=== PATIENT | male | born 1945 | race Caucasian/White ===

== ENCOUNTER 2020-06-05 18:13 | Inpatient (IN) ==
[2020-06-05 22:06] LABS: Adenovirus Not Detected (Not Detect); Bordetella Pertussis Not Detected (Not Detect); Chlamydophila pneumoniae Not Detected (Not Detect); Coronavirus 229E Not Detected (Not Detect); Coronavirus HKU1 Not Detected (Not Detect); Coronavirus NL63 Not Detected (Not Detect); Coronavirus OC43 Not Detected (Not Detect); Human Metapneumovirus Not Detected (Not Detect); Human Rhinovirus/Enterovirus Not Detected (Not Detect); Influenza A Subtype 2009 H1 Not Detected (Not Detect); Influenza B Not Detected (Not Detect); Mycoplasma pneumoniae Not Detected (Not Detect); Parainfluenza Virus 1 Not Detected (Not Detect); Parainfluenza Virus 2 Not Detected (Not Detect); Parainfluenza Virus 3 Not Detected (Not Detect); Parainfluenza Virus 4 Not Detected (Not Detect); Respiratory Syncytial Virus Not Detected (Not Detect)
[2020-06-05 22:07] LABS: SARS-CoV-2 Not Detected (Not Detect)
[2020-06-05] MEDS ORDERED: Ondansetron 4 MG/2 ML VIAL IVP PRN (23:36)
[2020-06-05] MEDS ORDERED: Naloxone 0.4 MG/ML INJ IVP PRN (23:36)
[2020-06-06] MEDS ORDERED: *HR* Dextrose 50 % in Water (Vial) 50 ML VIAL IVP PRN (03:19)
[2020-06-06] MEDS ORDERED: D5% in Water 1,000 ML IVC PRN (03:19)
[2020-06-06] MEDS ORDERED: Dextrose Gel 15 GM/37.5 ML TUBE PO PRN ×2 (03:19)
[2020-06-06] MEDS: *HR* Heparin 5,000 UNIT/ML VIAL SQ SCH ×2 (05:24→18:36)
[2020-06-06 06:08] LABS: Basophils # 0.1 K/mcL (0.0-0.2); Basophils % 0.7 %; Eosinophils # 0.1 K/mcL (0.0-0.6); Eosinophils % 1.2 %; Hematocrit 35.7 % (37.5-50.1); Hemoglobin 10.2 g/dL (12.9-16.9); Immature Granulocytes % 1.9 % (0-4); Lymphocytes # 1.4 K/mcL (0.6-4.6); Lymphocytes % 13.2 %; Mean Corpuscular HGB Conc 28.6 g/dL (31.6-35.5); Mean Corpuscular Hemoglobin 29.7 pg (28.0-33.3); Mean Corpuscular Volume 104.1 fL (83.0-100.0); Mean Platelet Volume 9.4 fL (9.4-12.4); Monocytes # 1.3 K/mcL (0.0-1.3); Monocytes % 12.5 %; Neutrophils # 7.5 K/mcL (1.6-8.9); Platelet Count 262 K/mcL (140-400); Red Blood Count 3.43 M/mcL (4.19-5.50); Red Cell Distribution Width 18.6 % (11.5-14.5); Segmented Neutrophils % 70.5 %; White Blood Count 10.6 K/mcL (4.3-11.1)
[2020-06-06 06:24] LABS: Albumin 3.5 g/dL (3.5-5.7); Albumin/Globulin Ratio 0.8 (1.1-2.2); Bilirubin,Total 0.4 mg/dL (0.3-1.0); Calcium 10.2 mg/dL (8.6-10.3); Globulin 4.5 g/dL (2.4-3.5); Magnesium 2.7 mg/dL (1.6-2.6); Phosphorous 4.6 mg/dL (2.7-4.5); Potassium 4.2 mEq/L (3.5-5.1)
[2020-06-06 06:26] LABS: Platelet Estimate Normal (Normal)
[2020-06-06 06:27] LABS: Anisocytosis 1+ (Not Present); Hypochromasia Present (Not Present); Stomatocytes 1+ (Not Present)
[2020-06-06] MEDS ORDERED: *HR* FentaNYL (PF) 100 MCG/2 ML VIAL ONE (07:38)
[2020-06-06] MEDS ORDERED: *HR* Midazolam HCl 5 MG/5 ML VIAL IVP ONE (07:39)
[2020-06-06] MEDS ORDERED: Lidocaine Viscous Oral Soln 15 ML SOLUTION ONE (07:39)
[2020-06-06] MEDS: Insulin LISPRO 300 UNITS/3 ML VIAL SQ SCH ×4 (08:00→21:47)
[2020-06-06] MEDS: cefTRIAXone 1,000 MG in Water for inj. (sterile) 10 ML IVP SCH (08:00)
[2020-06-06 08:30] LABS: Procalcitonin 1.54 ng/mL (0.00-0.15)
[2020-06-06] MEDS ORDERED: Ipratropium/Albuterol Neb 3 ML IH PRN (09:04)
[2020-06-06] MEDS: Budesonide Neb 0.5 MG/2 ML IH SCH ×2 (09:47→21:38)
[2020-06-06] MEDS: Ipratropium/Albuterol Neb 3 ML IH SCH ×3 (09:47→21:38)
[2020-06-06 15:20] LABS: Hepatitis B Surface Antibody 11.25 mIU/mL
[2020-06-06 15:32] LABS: Hepatitis B Surface Antigen Reactive (Nonreactive)
[2020-06-06] MEDS: Azithromycin 500 MG in D5% in Water 250 ML IVPB SCH (18:36)
[2020-06-06] MEDS ORDERED: Acetaminophen 325 MG TABLET PO PRN (19:13)
[2020-06-06] MEDS: Albuterol 2.5 MG/3 ML NEBULIZER AER SCH (21:38)
[2020-06-07] MEDS: Ipratropium/Albuterol Neb 3 ML IH SCH ×4 (03:48→21:14)
[2020-06-07] MEDS: *HR* Heparin 5,000 UNIT/ML VIAL SQ SCH (05:03)
[2020-06-07 06:15] LABS: Hematocrit 33.7 % (37.5-50.1); Hemoglobin 9.9 g/dL (12.9-16.9); Mean Corpuscular HGB Conc 29.4 g/dL (31.6-35.5); Mean Corpuscular Hemoglobin 30.1 pg (28.0-33.3); Mean Corpuscular Volume 102.4 fL (83.0-100.0); Mean Platelet Volume 9.9 fL (9.4-12.4); Platelet Count 290 K/mcL (140-400); Red Blood Count 3.29 M/mcL (4.19-5.50); Red Cell Distribution Width 18.2 % (11.5-14.5); White Blood Count 11.4 K/mcL (4.3-11.1)
[2020-06-07 06:47] LABS: Calcium 10.5 mg/dL (8.6-10.3); Magnesium 2.9 mg/dL (1.6-2.6); Potassium 4.4 mEq/L (3.5-5.1)
[2020-06-07] MEDS ORDERED: 0.9 % Sodium Chloride 1,000 ML PRIME SCH (08:15)
[2020-06-07] MEDS ORDERED: *HR* Heparin 10,000 UNIT/10 ML VIAL IV PRN ×2 (08:15)
[2020-06-07] MEDS: Renal Vitamin 1 CAP CAPSULE PO SCH (08:22)
[2020-06-07] MEDS: cefTRIAXone 1,000 MG in Water for inj. (sterile) 10 ML IVP SCH (08:24)
[2020-06-07] MEDS: Insulin LISPRO 300 UNITS/3 ML VIAL SQ SCH ×4 (08:25→21:50)
[2020-06-07] MEDS ORDERED: Famotidine 400 MG/50 ML ORAL SUSPENSION GTUBE SCH (09:00)
[2020-06-07] MEDS: Famotidine 400 MG/50 ML ORAL SUSPENSION GTUBE SCH (09:26)
[2020-06-07] MEDS: Albuterol 2.5 MG/3 ML NEBULIZER AER SCH ×2 (10:00→21:14)
[2020-06-07] MEDS: Budesonide Neb 0.5 MG/2 ML IH SCH ×2 (10:00→21:14)
[2020-06-07] MEDS: Azithromycin 500 MG in D5% in Water 250 ML IVPB SCH (17:12)
[2020-06-07] MEDS: 0.9 % Sodium Chloride 250 ML IVC PRN (21:47)
[2020-06-08] MEDS: 0.9 % Sodium Chloride 250 ML IVC PRN (03:27)
[2020-06-08 03:50] LABS: Hemoglobin 9.8 g/dL (12.9-16.9)
[2020-06-08 03:51] LABS: Hematocrit 35.3 % (37.5-50.1); Mean Corpuscular HGB Conc 27.8 g/dL (31.6-35.5); Mean Corpuscular Hemoglobin 30.4 pg (28.0-33.3); Mean Corpuscular Volume 109.6 fL (83.0-100.0); Mean Platelet Volume 9.6 fL (9.4-12.4); Platelet Count 365 K/mcL (140-400); Red Blood Count 3.22 M/mcL (4.19-5.50); White Blood Count 17.8 K/mcL (4.3-11.1)
[2020-06-08] MEDS: Ipratropium/Albuterol Neb 3 ML IH SCH ×4 (04:02→21:14)
[2020-06-08 04:03] LABS: ABG PCO2 > 150 mmHg (35-45); ABG PH 6.75 pH Units (7.32-7.45); ABG PO2 77 mmHg (85-104)
[2020-06-08 04:08] LABS: Calcium 9.6 mg/dL (8.6-10.3); Potassium 5.4 mEq/L (3.5-5.1)
[2020-06-08 04:09] LABS: % Iron Saturation 46 % (20-55); Iron 74 mcg/dL (65-175); Transferrin 114 mg/dL (203-362)
[2020-06-08 04:11] LABS: Phosphorous 8.5 mg/dL (2.7-4.5)
[2020-06-08 04:34] LABS: Folate 18.7 ng/mL (3.0-16.0)
[2020-06-08] MEDS ORDERED: 0.9 % Sodium Chloride 1,000 ML IVC ONE (04:55)
[2020-06-08] MEDS ORDERED: 0.9 % Sodium Chloride 1,000 ML ONE (04:56)
[2020-06-08] MEDS ORDERED: Norepinephrine 4 MG/254 ML IV.SOLN IVC SCH (06:15)
[2020-06-08] MEDS: Insulin LISPRO 300 UNITS/3 ML VIAL SQ SCH ×4 (08:54→23:39)
[2020-06-08] MEDS: Renal Vitamin 1 CAP CAPSULE PO SCH (08:55)
[2020-06-08] MEDS: cefTRIAXone 1,000 MG in Water for inj. (sterile) 10 ML IVP SCH (08:58)
[2020-06-08 09:24] LABS: VBG HCO3 22 mEq/L (21-27); VBG PCO2 56 mmHg (41-51); VBG PH 7.19 pH Units (7.32-7.42); VBG PO2 198 mmHg (25-50)
[2020-06-08] MEDS ORDERED: Phenylephrine 10 MG in 0.9 % Sodium Chloride 250 ML IVC SCH (09:30)
[2020-06-08] MEDS: Budesonide Neb 0.5 MG/2 ML IH SCH ×2 (10:22→21:15)
[2020-06-08] MEDS: Albuterol 2.5 MG/3 ML NEBULIZER AER SCH ×2 (10:22→21:15)
[2020-06-08] MEDS: Famotidine 400 MG/50 ML ORAL SUSPENSION GTUBE SCH (12:13)
[2020-06-08] MEDS: Phenylephrine 50 MG in 0.9 % Sodium Chloride 250 ML IVC SCH ×2 (12:13→17:15)
[2020-06-08] MEDS: *HR* FentaNYL (PF) 100 MCG/2 ML VIAL IVP PRN ×2 (12:29→18:06)
[2020-06-08] MEDS ORDERED: Artificial Tears SOLN 15 ML BOTTLE BOTH EYES PRN (12:57)
[2020-06-08 14:55] LABS: Calcium 9.7 mg/dL (8.6-10.3); Potassium 4.4 mEq/L (3.5-5.1)
[2020-06-08] MEDS ORDERED: Perflutren Lipid Microsphere 1.3 ML in 0.9 % Sodium Chloride 8.7 ML IVP PRN (15:19)
[2020-06-08] MEDS ORDERED: Vasopressin 40 UNIT in D5% in Water 100 ML IVC SCH (15:30)
[2020-06-08] MEDS: Chlorhexidine Rinse 15 ML MOUTHWASH MM SCH ×2 (15:55→19:46)
[2020-06-08] MEDS: Artificial Tears SOLN 15 ML BOTTLE BOTH EYES SCH ×3 (15:57→23:39)
[2020-06-08] MEDS ORDERED: Vancomycin 1,500 MG/265 ML IV.SOLN IVPB ONE (16:00)
[2020-06-08 16:19] LABS: ABG Base Excess -9 mEq/L (-2 to 3); ABG HCO3 20 mEq/L (21-27); ABG Oxygen Saturation 94 % (95-98); ABG PCO2 53 mmHg (35-45); ABG PH 7.18 pH Units (7.32-7.45); ABG PO2 89 mmHg (85-104); ABG TCO2 22 mEq/L (20-26); Blood Gas VT 550 cc
[2020-06-08] MEDS: Norepinephrine 8 MG in 0.9 % Sodium Chloride 250 ML IVC SCH (17:17)
[2020-06-08] MEDS: Vasopressin 40 UNIT in D5% in Water 100 ML IVC SCH (17:17)
[2020-06-08] MEDS ORDERED: D5% in Water 250 ML ONE (17:45)
[2020-06-08] MEDS: Azithromycin 500 MG in D5% in Water 250 ML IVPB SCH (17:47)
[2020-06-08] MEDS: Piperacillin/Tazobactam 3.375 GM in 0.9 % Sodium Chloride Mini Bag 100 ML IVPB SCH (17:48)
[2020-06-08] MEDS: FentaNYL (PF) 1,000 MCG/100 ML IV.SOLN IVC SCH (18:49)
[2020-06-08 19:05] LABS: Adenovirus F 40/41 PCR Not detected (Not detect); Astrovirus PCR Not detected (Not detect); C.difficile Toxin A/B Gene PCR Not detected (Not detect); Campylobacter by PCR Not detected (Not detect); Cryptosporidium by PCR Not detected (Not detect); Cyclospora cayetanensis PCR Not detected (Not detect); E. coli O157 by PCR Not detected (Not detect); Entamoeba histolytica PCR Not detected (Not detect); Enteroaggregative E.coli(EAEC) Not detected (Not detect); Enteropathogenic E.coli(EPEC) Not detected (Not detect); Enterotoxigenic E.coli (ETEC) Not detected (Not detect); Giardia lamblia PCR Not detected (Not detect); Norovirus GI/GII PCR Not detected (Not detect); Plesiomonas shigelloides PCR Not detected (Not detect); Rotavirus A PCR Not detected (Not detect); Salmonella PCR Not detected (Not detect); Sapovirus PCR Not detected (Not detect); Shig/EnteroinvasiveE coli EIEC Not detected (Not detect); Shigalike tox-prod E coli STEC Not detected (Not detect); Vibrio PCR Not detected (Not detect); Vibrio cholerae PCR Not detected (Not detect); Yersinia enterocolitica PCR Not detected (Not detect)
[2020-06-09] MEDS: Phenylephrine 50 MG in 0.9 % Sodium Chloride 250 ML IVC SCH ×2 (00:11→05:34)
[2020-06-09] MEDS: Ipratropium/Albuterol Neb 3 ML IH SCH ×4 (03:16→21:19)
[2020-06-09] MEDS: Artificial Tears SOLN 15 ML BOTTLE BOTH EYES SCH ×5 (03:59→20:22)
[2020-06-09 04:33] LABS: ABG Base Excess -8 mEq/L (-2 to 3); ABG HCO3 18 mEq/L (21-27); ABG Oxygen Saturation 99 % (95-98); ABG PCO2 38 mmHg (35-45); ABG PH 7.28 pH Units (7.32-7.45); ABG PO2 127 mmHg (85-104); ABG TCO2 19 mEq/L (20-26); Blood Gas VT 550 cc
[2020-06-09 04:46] LABS: Albumin/Globulin Ratio 0.7 (1.1-2.2); Bilirubin,Total 0.5 mg/dL (0.3-1.0); Calcium 9.1 mg/dL (8.6-10.3); Globulin 4.3 g/dL (2.4-3.5); Magnesium 2.3 mg/dL (1.6-2.6); Phosphorous 2.9 mg/dL (2.7-4.5); Total Protein 7.3 g/dL (6.4-8.9)
[2020-06-09 04:59] LABS: Basophils # 0.1 K/mcL (0.0-0.2); Basophils % 0.2 %; Eosinophils % 0.1 %; Hematocrit 33.4 % (37.5-50.1); Hemoglobin 10.5 g/dL (12.9-16.9); Immature Granulocytes % 1.5 % (0-4); Lymphocytes % 4.3 %; Mean Corpuscular HGB Conc 31.4 g/dL (31.6-35.5); Mean Corpuscular Hemoglobin 30.8 pg (28.0-33.3); Mean Corpuscular Volume 97.9 fL (83.0-100.0); Mean Platelet Volume 10.1 fL (9.4-12.4); Monocytes # 2.3 K/mcL (0.0-1.3); Monocytes % 9.8 %; Nucleated Red Blood Cells 0.6 /100 WBC (0); Platelet Count 325 K/mcL (140-400); Red Blood Count 3.41 M/mcL (4.19-5.50); Segmented Neutrophils % 84.1 %; White Blood Count 23.6 K/mcL (4.3-11.1)
[2020-06-09 05:10] LABS: Neutrophils # 19.9 K/mcL (1.6-8.9)
[2020-06-09] MEDS: Piperacillin/Tazobactam 3.375 GM in 0.9 % Sodium Chloride Mini Bag 100 ML IVPB SCH ×2 (05:23→17:28)
[2020-06-09] MEDS: Insulin LISPRO 300 UNITS/3 ML VIAL SQ SCH ×3 (05:34→19:05)
[2020-06-09 06:09] LABS: Anisocytosis 1+ (Not Present); Hypochromasia Present (Not Present); Platelet Estimate Normal (Normal); Poikilocytosis 1+ (Not Present); Toxic Vacuolation Present (Not Present)
[2020-06-09] MEDS: FentaNYL (PF) 1,000 MCG/100 ML IV.SOLN IVC SCH ×2 (08:45→16:57)
[2020-06-09] MEDS: Albuterol 2.5 MG/3 ML NEBULIZER AER SCH ×2 (09:38→21:20)
[2020-06-09] MEDS: Budesonide Neb 0.5 MG/2 ML IH SCH ×2 (09:38→21:19)
[2020-06-09] MEDS: Chlorhexidine Rinse 15 ML MOUTHWASH MM SCH ×2 (10:44→20:21)
[2020-06-09] MEDS: Renal Vitamin 1 CAP CAPSULE PO SCH (10:45)
[2020-06-09] MEDS: Phenylephrine 100 MG in 0.9 % Sodium Chloride 500 ML IVC SCH ×2 (10:46→20:39)
[2020-06-09] MEDS: Vasopressin 40 UNIT in D5% in Water 100 ML IVC SCH (10:49)
[2020-06-09] MEDS ORDERED: Calcium Gluconate 1gm/50mL 1 GM/50 ML BAG IVPB PRN (11:43)
[2020-06-09] MEDS ORDERED: 0.9 % Sodium Chloride 1,000 ML PRIME ONE ×2 (11:43)
[2020-06-09] MEDS ORDERED: *HR* Heparin 5,000 UNIT/ML VIAL IVP PRN (11:43)
[2020-06-09] MEDS ORDERED: 0.9 % Sodium Chloride 1,000 ML PRIME SCH (11:45)
[2020-06-09] MEDS: Famotidine 400 MG/50 ML ORAL SUSPENSION GTUBE SCH (16:33)
[2020-06-09 17:09] LABS: INR 1.5; Prothrombin Time 17.5 Seconds (9.4-12.1)
[2020-06-09 17:12] LABS: Activated Partial Thrombo Time 34.4 Seconds (26.0-36.0)
[2020-06-09 17:14] LABS: VBG Ionized Calcium 1.11 mmol/L (1.15-1.35)
[2020-06-09] MEDS: Azithromycin 500 MG in D5% in Water 250 ML IVPB SCH (17:28)
[2020-06-09] MEDS: PrismaSATE BGK 4/2.5 5,000 ML CRRT SCH ×4 (17:29→21:49)
[2020-06-09] MEDS: Calcium Chloride 4,000 MG in 0.9 % Sodium Chloride 1,000 ML CRRT SCH (17:30)
[2020-06-09] MEDS: Norepinephrine 8 MG in 0.9 % Sodium Chloride 250 ML IVC SCH (17:31)
[2020-06-09 20:07] LABS: VBG Ionized Calcium 1.07 mmol/L (1.15-1.35)
[2020-06-10 00:24] LABS: VBG Ionized Calcium 1.14 mmol/L (1.15-1.35)
[2020-06-10] MEDS: Artificial Tears SOLN 15 ML BOTTLE BOTH EYES SCH ×7 (01:21→23:30)
[2020-06-10] MEDS: Insulin LISPRO 300 UNITS/3 ML VIAL SQ SCH ×5 (01:21→23:31)
[2020-06-10] MEDS: Vasopressin 40 UNIT in D5% in Water 100 ML IVC SCH ×2 (01:22→19:29)
[2020-06-10] MEDS: FentaNYL (PF) 1,000 MCG/100 ML IV.SOLN IVC SCH ×4 (01:30→21:15)
[2020-06-10 03:40] LABS: Hematocrit 30.1 % (37.5-50.1); Hemoglobin 9.2 g/dL (12.9-16.9); Mean Corpuscular HGB Conc 30.6 g/dL (31.6-35.5); Mean Platelet Volume 9.8 fL (9.4-12.4); Nucleated Red Blood Cells 0.6 /100 WBC (0); Platelet Count 269 K/mcL (140-400); Red Blood Count 3.17 M/mcL (4.19-5.50); Red Cell Distribution Width 17.8 % (11.5-14.5); White Blood Count 19.2 K/mcL (4.3-11.1)
[2020-06-10] MEDS: Ipratropium/Albuterol Neb 3 ML IH SCH ×4 (03:41→21:59)
[2020-06-10 03:56] LABS: Magnesium 2.1 mg/dL (1.6-2.6)
[2020-06-10 04:01] LABS: Anisocytosis 1+ (Not Present); Lymphocytes # 2.3 K/mcL (0.6-4.6); Monocytes # 2.3 K/mcL (0.0-1.3); Neutrophils # 14.6 K/mcL (1.6-8.9); Platelet Estimate Normal (Normal); Polychromasia 1+ (Not Present)
[2020-06-10 04:41] LABS: Potassium 3.5 mEq/L (3.5-5.1)
[2020-06-10 05:10] LABS: ABG Base Excess -6 mEq/L (-2 to 3); ABG HCO3 19 mEq/L (21-27); ABG Oxygen Saturation 97 % (95-98); ABG PCO2 32 mmHg (35-45); ABG PH 7.38 pH Units (7.32-7.45); ABG PO2 87 mmHg (85-104); ABG TCO2 20 mEq/L (20-26); Blood Gas VT 550 cc
[2020-06-10] MEDS: Piperacillin/Tazobactam 3.375 GM in 0.9 % Sodium Chloride Mini Bag 100 ML IVPB SCH ×2 (05:18→18:46)
[2020-06-10] MEDS: Chlorhexidine Rinse 15 ML MOUTHWASH MM SCH ×2 (08:15→20:28)
[2020-06-10] MEDS: Phenylephrine 100 MG in 0.9 % Sodium Chloride 500 ML IVC SCH ×2 (09:18→21:15)
[2020-06-10] MEDS ORDERED: *HR* Alteplase (Cathflo) 2 MG VIAL IVP ONE (09:44)
[2020-06-10] MEDS: Albuterol 2.5 MG/3 ML NEBULIZER AER SCH ×2 (09:55→21:59)
[2020-06-10] MEDS: Budesonide Neb 0.5 MG/2 ML IH SCH ×2 (09:55→21:59)
[2020-06-10] MEDS: Renal Vitamin 1 CAP CAPSULE PO SCH (10:31)
[2020-06-10] MEDS: levoFLOXacin 750 MG/150 ML 750 MG/150 ML BAG IVPB SCH (10:39)
[2020-06-10] MEDS: Famotidine 400 MG/50 ML ORAL SUSPENSION GTUBE SCH (10:39)
[2020-06-10] MEDS ORDERED: Potassium Chloride Elixir 20 MEQ/15 ML UDC GTUBE ONE (11:50)
[2020-06-10] MEDS ORDERED: *HR* Heparin 5,000 UNIT/ML VIAL ONE (13:35)
[2020-06-10] MEDS ORDERED: Amiodarone Premix 150 MG/100 ML BAG IVPB ONE (15:35)
[2020-06-10] MEDS ORDERED: Amiodarone Premix 360 MG/200 ML BAG IVC ONE (15:35)
[2020-06-10] MEDS ORDERED: Magnesium Sulfate 1 GM/102 ML PIGGYBACK IVPB ONE (15:35)
[2020-06-10] MEDS: Azithromycin 500 MG in D5% in Water 250 ML IVPB SCH (16:41)
[2020-06-10] MEDS: Calcium Chloride 4,000 MG in 0.9 % Sodium Chloride 1,000 ML CRRT SCH (19:28)
[2020-06-10] MEDS: Norepinephrine 8 MG in 0.9 % Sodium Chloride 250 ML IVC SCH (19:29)
[2020-06-10] MEDS: Amiodarone Premix 360 MG/200 ML BAG IVC SCH (23:30)
[2020-06-11] MEDS: FentaNYL (PF) 2,500 MCG/50 ML IV.SOLN IVC SCH ×3 (01:15→20:54)
[2020-06-11] MEDS: Artificial Tears SOLN 15 ML BOTTLE BOTH EYES SCH ×5 (03:45→20:57)
[2020-06-11] MEDS: Ipratropium/Albuterol Neb 3 ML IH SCH ×4 (04:01→21:20)
[2020-06-11 04:15] LABS: Hematocrit 28.6 % (37.5-50.1); Mean Corpuscular HGB Conc 31.5 g/dL (31.6-35.5); Mean Corpuscular Hemoglobin 29.8 pg (28.0-33.3); Mean Corpuscular Volume 94.7 fL (83.0-100.0); Mean Platelet Volume 9.8 fL (9.4-12.4); Nucleated Red Blood Cells 0.3 /100 WBC (0); Platelet Count 223 K/mcL (140-400); Red Blood Count 3.02 M/mcL (4.19-5.50); Red Cell Distribution Width 17.8 % (11.5-14.5); White Blood Count 23.2 K/mcL (4.3-11.1)
[2020-06-11 04:36] LABS: Potassium 3.5 mEq/L (3.5-5.1)
[2020-06-11 04:48] LABS: Lymphocytes # 2.8 K/mcL (0.6-4.6); Monocytes # 1.4 K/mcL (0.0-1.3)
[2020-06-11 04:50] LABS: Anisocytosis 1+ (Not Present); Polychromasia 1+ (Not Present)
[2020-06-11 04:51] LABS: Platelet Estimate Normal (Normal)
[2020-06-11 04:54] LABS: ABG Base Excess -8 mEq/L (-2 to 3); ABG HCO3 16 mEq/L (21-27); ABG Oxygen Saturation 98 % (95-98); ABG PCO2 27 mmHg (35-45); ABG PH 7.38 pH Units (7.32-7.45); ABG PO2 104 mmHg (85-104); ABG TCO2 17 mEq/L (20-26); Blood Gas Modality AF; Blood Gas VT 550 cc
[2020-06-11] MEDS: Piperacillin/Tazobactam 3.375 GM in 0.9 % Sodium Chloride Mini Bag 100 ML IVPB SCH ×2 (06:27→18:48)
[2020-06-11] MEDS: Insulin LISPRO 300 UNITS/3 ML VIAL SQ SCH ×3 (06:28→18:57)
[2020-06-11] MEDS: Chlorhexidine Rinse 15 ML MOUTHWASH MM SCH ×2 (08:25→20:03)
[2020-06-11] MEDS: Famotidine 400 MG/50 ML ORAL SUSPENSION GTUBE SCH (08:30)
[2020-06-11] MEDS: Renal Vitamin 1 CAP CAPSULE PO SCH (08:32)
[2020-06-11] MEDS: Albuterol 2.5 MG/3 ML NEBULIZER AER SCH ×2 (09:25→21:21)
[2020-06-11] MEDS: Budesonide Neb 0.5 MG/2 ML IH SCH ×2 (09:25→21:20)
[2020-06-11] MEDS: Amiodarone Premix 360 MG/200 ML BAG IVC SCH (11:49)
[2020-06-11] MEDS: *HR* Heparin 5,000 UNIT/ML VIAL SQ SCH ×2 (15:48→21:02)
[2020-06-11] MEDS: Calcium Chloride 4,000 MG in 0.9 % Sodium Chloride 1,000 ML CRRT SCH (20:56)
[2020-06-11] MEDS: Vasopressin 40 UNIT in D5% in Water 100 ML IVC SCH (20:56)
[2020-06-11] MEDS: PrismaSATE BGK 4/2.5 5,000 ML CRRT SCH ×2 (20:57)
[2020-06-11] MEDS: Norepinephrine 8 MG in 0.9 % Sodium Chloride 250 ML IVC SCH (20:57)
[2020-06-12] MEDS: Artificial Tears SOLN 15 ML BOTTLE BOTH EYES SCH ×7 (00:03→23:11)
[2020-06-12] MEDS: Insulin LISPRO 300 UNITS/3 ML VIAL SQ SCH ×5 (00:04→23:14)
[2020-06-12] MEDS: Vasopressin 40 UNIT in D5% in Water 100 ML IVC SCH ×2 (00:05→19:21)
[2020-06-12] MEDS: Amiodarone Premix 360 MG/200 ML BAG IVC SCH ×2 (00:06→11:42)
[2020-06-12] MEDS: Ipratropium/Albuterol Neb 3 ML IH SCH ×4 (03:26→21:18)
[2020-06-12 04:45] LABS: Basophils # 0.1 K/mcL (0.0-0.2); Basophils % 0.3 %; Eosinophils # 0.1 K/mcL (0.0-0.6); Eosinophils % 0.2 %; Hematocrit 27.7 % (37.5-50.1); Hemoglobin 8.7 g/dL (12.9-16.9); Immature Granulocytes % 2.2 % (0-4); Lymphocytes # 1.1 K/mcL (0.6-4.6); Lymphocytes % 4.6 %; Mean Corpuscular HGB Conc 31.4 g/dL (31.6-35.5); Mean Corpuscular Hemoglobin 29.5 pg (28.0-33.3); Mean Corpuscular Volume 93.9 fL (83.0-100.0); Mean Platelet Volume 9.5 fL (9.4-12.4); Monocytes # 1.4 K/mcL (0.0-1.3); Monocytes % 5.8 %; Neutrophils # 20.9 K/mcL (1.6-8.9); Nucleated Red Blood Cells 0.2 /100 WBC (0); Platelet Count 204 K/mcL (140-400); Red Blood Count 2.95 M/mcL (4.19-5.50); Red Cell Distribution Width 18.1 % (11.5-14.5); Segmented Neutrophils % 86.9 %; White Blood Count 24.1 K/mcL (4.3-11.1)
[2020-06-12 05:05] LABS: Calcium 8.5 mg/dL (8.6-10.3); Potassium 3.8 mEq/L (3.5-5.1)
[2020-06-12 05:20] LABS: ABG Base Excess -7 mEq/L (-2 to 3); ABG HCO3 17 mEq/L (21-27); ABG Oxygen Saturation 99 % (95-98); ABG PCO2 28 mmHg (35-45); ABG PH 7.39 pH Units (7.32-7.45); ABG PO2 121 mmHg (85-104); ABG TCO2 18 mEq/L (20-26); Blood Gas Modality AF; Blood Gas VT 550 cc
[2020-06-12] MEDS: Piperacillin/Tazobactam 3.375 GM in 0.9 % Sodium Chloride Mini Bag 100 ML IVPB SCH ×3 (05:48→23:11)
[2020-06-12] MEDS: *HR* Heparin 5,000 UNIT/ML VIAL SQ SCH ×3 (05:48→21:54)
[2020-06-12] MEDS: FentaNYL (PF) 2,500 MCG/50 ML IV.SOLN IVC SCH ×2 (06:52→18:36)
[2020-06-12] MEDS: Chlorhexidine Rinse 15 ML MOUTHWASH MM SCH ×2 (08:00→19:45)
[2020-06-12] MEDS: Famotidine 400 MG/50 ML ORAL SUSPENSION GTUBE SCH (08:00)
[2020-06-12] MEDS: Renal Vitamin 1 CAP CAPSULE PO SCH (08:01)
[2020-06-12] MEDS: Phenylephrine 100 MG in 0.9 % Sodium Chloride 500 ML IVC SCH (08:03)
[2020-06-12] MEDS: levoFLOXacin 750 MG/150 ML 750 MG/150 ML BAG IVPB SCH (09:08)
[2020-06-12] MEDS: Albuterol 2.5 MG/3 ML NEBULIZER AER SCH ×2 (09:45→21:20)
[2020-06-12] MEDS: Budesonide Neb 0.5 MG/2 ML IH SCH ×2 (09:45→21:18)
[2020-06-12] MEDS ORDERED: Isovue-370 500 ML BOTTLE IVP ONE ×2 (09:47→09:49)
[2020-06-12] MEDS: Calcium Chloride 4,000 MG in 0.9 % Sodium Chloride 1,000 ML CRRT SCH ×2 (10:03→15:58)
[2020-06-12] MEDS: PrismaSATE BGK 4/2.5 5,000 ML CRRT SCH ×6 (10:03→20:23)
[2020-06-12] MEDS ORDERED: *HR* Heparin 5,000 UNIT/ML VIAL ONE (11:32)
[2020-06-12] MEDS: Norepinephrine 8 MG in 0.9 % Sodium Chloride 250 ML IVC SCH (15:06)
[2020-06-12] MEDS: MetroNIDAZOLE 500 MG/100 ML 500 MG/100 ML BAG IVPB SCH ×2 (15:06→23:11)
[2020-06-12] MEDS: Vancomycin Oral Soln 125 MG/2.5 ML UDC GTUBE SCH ×2 (16:08→21:54)
[2020-06-12 19:05] LABS: VBG Ionized Calcium 1.08 mmol/L (1.15-1.35)
[2020-06-13 00:12] LABS: VBG Ionized Calcium 1.09 mmol/L (1.15-1.35)
[2020-06-13] MEDS: PrismaSATE BGK 4/2.5 5,000 ML CRRT SCH ×12 (00:19→20:47)
[2020-06-13] MEDS: Amiodarone Premix 360 MG/200 ML BAG IVC SCH ×2 (01:15→13:28)
[2020-06-13 02:11] LABS: VBG Ionized Calcium 1.16 mmol/L (1.15-1.35)
[2020-06-13] MEDS: Ipratropium/Albuterol Neb 3 ML IH SCH ×4 (03:27→21:44)
[2020-06-13] MEDS: Artificial Tears SOLN 15 ML BOTTLE BOTH EYES SCH ×6 (03:47→23:05)
[2020-06-13 04:13] LABS: Basophils # 0.1 K/mcL (0.0-0.2); Basophils % 0.3 %; Eosinophils # 0.1 K/mcL (0.0-0.6); Eosinophils % 0.5 %; Hematocrit 28.8 % (37.5-50.1); Hemoglobin 8.8 g/dL (12.9-16.9); Immature Granulocytes % 2.4 % (0-4); Lymphocytes % 5.5 %; Mean Corpuscular HGB Conc 30.6 g/dL (31.6-35.5); Mean Corpuscular Hemoglobin 29.1 pg (28.0-33.3); Mean Corpuscular Volume 95.4 fL (83.0-100.0); Mean Platelet Volume 9.6 fL (9.4-12.4); Monocytes # 1.4 K/mcL (0.0-1.3); Monocytes % 7.9 %; Neutrophils # 14.5 K/mcL (1.6-8.9); Nucleated Red Blood Cells 0.6 /100 WBC (0); Platelet Count 162 K/mcL (140-400); Red Blood Count 3.02 M/mcL (4.19-5.50); Red Cell Distribution Width 18.4 % (11.5-14.5); Segmented Neutrophils % 83.4 %; White Blood Count 17.4 K/mcL (4.3-11.1)
[2020-06-13 04:41] LABS: Calcium 8.7 mg/dL (8.6-10.3); Magnesium 2.3 mg/dL (1.6-2.6)
[2020-06-13] MEDS: Insulin LISPRO 300 UNITS/3 ML VIAL SQ SCH ×4 (05:04→23:05)
[2020-06-13] MEDS: *HR* Heparin 5,000 UNIT/ML VIAL SQ SCH ×3 (05:54→22:45)
[2020-06-13 06:01] LABS: ABG Base Excess -3 mEq/L (-2 to 3); ABG HCO3 22 mEq/L (21-27); ABG Oxygen Saturation 99 % (95-98); ABG PCO2 37 mmHg (35-45); ABG PH 7.37 pH Units (7.32-7.45); ABG PO2 117 mmHg (85-104); ABG TCO2 23 mEq/L (20-26); Blood Gas Modality AF; Blood Gas VT 520 cc
[2020-06-13] MEDS: FentaNYL (PF) 2,500 MCG/50 ML IV.SOLN IVC SCH ×2 (06:29→18:58)
[2020-06-13] MEDS: Midazolam HCl 50 MG/100 ML IV.SOLN IVC SCH (07:40)
[2020-06-13] MEDS: Piperacillin/Tazobactam 3.375 GM in 0.9 % Sodium Chloride Mini Bag 100 ML IVPB SCH ×3 (08:09→23:04)
[2020-06-13] MEDS: Chlorhexidine Rinse 15 ML MOUTHWASH MM SCH ×2 (08:09→19:44)
[2020-06-13] MEDS: Vancomycin Oral Soln 125 MG/2.5 ML UDC GTUBE SCH ×4 (08:09→19:44)
[2020-06-13] MEDS: MetroNIDAZOLE 500 MG/100 ML 500 MG/100 ML BAG IVPB SCH ×3 (08:18→23:05)
[2020-06-13] MEDS: Renal Vitamin 1 CAP CAPSULE PO SCH (08:54)
[2020-06-13] MEDS: Budesonide Neb 0.5 MG/2 ML IH SCH ×2 (09:19→21:45)
[2020-06-13] MEDS: Albuterol 2.5 MG/3 ML NEBULIZER AER SCH ×2 (09:20→21:44)
[2020-06-13 09:31] LABS: INR 1.3; Prothrombin Time 14.8 Seconds (9.4-12.1)
[2020-06-13 09:33] LABS: Activated Partial Thrombo Time 36.5 Seconds (26.0-36.0)
[2020-06-13 09:33] LABS: VBG Ionized Calcium 1.13 mmol/L (1.15-1.35)
[2020-06-13] MEDS: Famotidine 400 MG/50 ML ORAL SUSPENSION GTUBE SCH ×2 (10:55→12:32)
[2020-06-13] MEDS: Calcium Chloride 4,000 MG in 0.9 % Sodium Chloride 1,000 ML CRRT SCH (12:44)
[2020-06-13 15:25] LABS: VBG Ionized Calcium 1.14 mmol/L (1.15-1.35)
[2020-06-13] MEDS: Norepinephrine 8 MG in 0.9 % Sodium Chloride 250 ML IVC SCH (19:42)
[2020-06-13] MEDS: Vasopressin 40 UNIT in D5% in Water 100 ML IVC SCH (19:42)
[2020-06-13 20:59] LABS: VBG Ionized Calcium 1.16 mmol/L (1.15-1.35)
[2020-06-14] MEDS: PrismaSATE BGK 4/2.5 5,000 ML CRRT SCH ×12 (00:59→22:20)
[2020-06-14] MEDS: Artificial Tears SOLN 15 ML BOTTLE BOTH EYES SCH ×6 (03:07→23:57)
[2020-06-14 03:14] LABS: VBG Ionized Calcium 1.16 mmol/L (1.15-1.35)
[2020-06-14] MEDS: Ipratropium/Albuterol Neb 3 ML IH SCH ×4 (03:29→22:44)
[2020-06-14] MEDS: Amiodarone Premix 360 MG/200 ML BAG IVC SCH ×2 (03:36→18:21)
[2020-06-14] MEDS: Vasopressin 40 UNIT in D5% in Water 100 ML IVC SCH ×2 (04:22→09:04)
[2020-06-14 04:48] LABS: Basophils # 0.1 K/mcL (0.0-0.2); Basophils % 0.4 %; Eosinophils # 0.1 K/mcL (0.0-0.6); Eosinophils % 0.4 %; Hematocrit 28.8 % (37.5-50.1); Hemoglobin 8.7 g/dL (12.9-16.9); Immature Granulocytes % 4.7 % (0-4); Lymphocytes # 1.1 K/mcL (0.6-4.6); Lymphocytes % 7.7 %; Mean Corpuscular HGB Conc 30.2 g/dL (31.6-35.5); Mean Corpuscular Hemoglobin 28.6 pg (28.0-33.3); Mean Corpuscular Volume 94.7 fL (83.0-100.0); Mean Platelet Volume 10.2 fL (9.4-12.4); Monocytes # 1.5 K/mcL (0.0-1.3); Monocytes % 10.6 %; Neutrophils # 10.5 K/mcL (1.6-8.9); Nucleated Red Blood Cells 1.4 /100 WBC (0); Platelet Count 169 K/mcL (140-400); Red Blood Count 3.04 M/mcL (4.19-5.50); Red Cell Distribution Width 18.3 % (11.5-14.5); Segmented Neutrophils % 76.2 %; White Blood Count 13.8 K/mcL (4.3-11.1)
[2020-06-14 05:05] LABS: BUN/Creatinine Ratio 17 (6-26); Blood Urea Nitrogen 19 mg/dL (8-23); Calcium 9.2 mg/dL (8.6-10.3); Carbon Dioxide 22 mEq/L (23-29); Chloride 102 mEq/L (98-107); Glucose 192 mg/dL (70-105); Osmolality,Calculated 293 (280-300); Potassium 3.5 mEq/L (3.5-5.1); Sodium 138 mEq/L (136-145); Vancomycin,Trough 18 mcg/mL (5-10); eGFR For African Americans > 60 (> 60); eGFR For Non-African Americans > 60 (> 60)
[2020-06-14] MEDS: Insulin LISPRO 300 UNITS/3 ML VIAL SQ SCH ×4 (05:08→23:56)
[2020-06-14 05:12] LABS: ABG Base Excess 4 mEq/L (-2 to 3); ABG HCO3 26 mEq/L (21-27); ABG Oxygen Saturation 97 % (95-98); ABG PCO2 31 mmHg (35-45); ABG PH 7.53 pH Units (7.32-7.45); ABG PO2 81 mmHg (85-104); ABG TCO2 27 mEq/L (20-26); Blood Gas Modality AF; Blood Gas VT 520 cc
[2020-06-14] MEDS: *HR* Heparin 5,000 UNIT/ML VIAL SQ SCH ×3 (05:12→21:49)
[2020-06-14] MEDS: Midazolam HCl 50 MG/100 ML IV.SOLN IVC SCH (06:46)
[2020-06-14] MEDS: FentaNYL (PF) 2,500 MCG/50 ML IV.SOLN IVC SCH ×2 (08:00→21:45)
[2020-06-14] MEDS: Renal Vitamin 1 CAP CAPSULE PO SCH (08:43)
[2020-06-14] MEDS: Piperacillin/Tazobactam 3.375 GM in 0.9 % Sodium Chloride Mini Bag 100 ML IVPB SCH ×3 (08:47→23:57)
[2020-06-14] MEDS: Chlorhexidine Rinse 15 ML MOUTHWASH MM SCH ×2 (08:48→19:59)
[2020-06-14] MEDS: MetroNIDAZOLE 500 MG/100 ML 500 MG/100 ML BAG IVPB SCH (08:48)
[2020-06-14] MEDS ORDERED: levoFLOXacin 500 MG/100 ML 500 MG/100 ML BAG IVPB SCH (09:00)
[2020-06-14] MEDS: Phenylephrine 100 MG in 0.9 % Sodium Chloride 500 ML IVC SCH (09:01)
[2020-06-14] MEDS: Budesonide Neb 0.5 MG/2 ML IH SCH ×2 (09:18→22:45)
[2020-06-14] MEDS: Albuterol 2.5 MG/3 ML NEBULIZER AER SCH ×2 (09:19→22:42)
[2020-06-14 09:53] LABS: VBG Ionized Calcium 1.16 mmol/L (1.15-1.35)
[2020-06-14] MEDS: Calcium Chloride 4,000 MG in 0.9 % Sodium Chloride 1,000 ML CRRT SCH (09:53)
[2020-06-14] MEDS: Vancomycin Oral Soln 125 MG/2.5 ML UDC GTUBE SCH (10:19)
[2020-06-14] MEDS ORDERED: Potassium Phosphate 44 MEQ in 0.9 % Sodium Chloride 250 ML IVPB ONE (10:56)
[2020-06-14 15:34] LABS: VBG Ionized Calcium 1.12 mmol/L (1.15-1.35)
[2020-06-14] MEDS: Norepinephrine 8 MG in 0.9 % Sodium Chloride 250 ML IVC SCH (16:13)
[2020-06-14 21:38] LABS: VBG Ionized Calcium 1.09 mmol/L (1.15-1.35)
[2020-06-15] MEDS: Phenylephrine 100 MG in 0.9 % Sodium Chloride 500 ML IVC SCH ×3 (00:18→23:01)
[2020-06-15 01:17] LABS: VBG Ionized Calcium 1.08 mmol/L (1.15-1.35)
[2020-06-15] MEDS: PrismaSATE BGK 4/2.5 5,000 ML CRRT SCH ×12 (02:02→22:50)
[2020-06-15 03:16] LABS: VBG Ionized Calcium 1.08 mmol/L (1.15-1.35)
[2020-06-15 03:18] LABS: Basophils # 0.1 K/mcL (0.0-0.2); Basophils % 0.4 %; Eosinophils # 0.1 K/mcL (0.0-0.6); Eosinophils % 0.7 %; Hematocrit 32.6 % (37.5-50.1); Hemoglobin 9.7 g/dL (12.9-16.9); Immature Granulocytes % 3.1 % (0-4); Lymphocytes # 1.4 K/mcL (0.6-4.6); Lymphocytes % 8.2 %; Mean Corpuscular HGB Conc 29.8 g/dL (31.6-35.5); Mean Corpuscular Hemoglobin 29.8 pg (28.0-33.3); Mean Platelet Volume 10.5 fL (9.4-12.4); Monocytes # 1.6 K/mcL (0.0-1.3); Monocytes % 9.8 %; Neutrophils # 12.9 K/mcL (1.6-8.9); Nucleated Red Blood Cells 1.2 /100 WBC (0); Platelet Count 144 K/mcL (140-400); Red Blood Count 3.26 M/mcL (4.19-5.50); Red Cell Distribution Width 18.9 % (11.5-14.5); Segmented Neutrophils % 77.8 %; White Blood Count 16.6 K/mcL (4.3-11.1)
[2020-06-15 03:32] LABS: Alanine Aminotransferase 18 Units/L (7-52); Albumin 2.9 g/dL (3.5-5.7); Albumin/Globulin Ratio 0.7 (1.1-2.2); Alkaline Phosphatase 116 Units/L (34-104); Aspartate Amino Transferase 21 Units/L (13-39); BUN/Creatinine Ratio 15 (6-26); Bilirubin,Total 0.5 mg/dL (0.3-1.0); Blood Urea Nitrogen 12 mg/dL (8-23); Carbon Dioxide 27 mEq/L (23-29); Chloride 100 mEq/L (98-107); Globulin 4.2 g/dL (2.4-3.5); Glucose 192 mg/dL (70-105); Osmolality,Calculated 291 (280-300); Potassium 3.8 mEq/L (3.5-5.1); Sodium 138 mEq/L (136-145); Total Protein 7.1 g/dL (6.4-8.9); eGFR For African Americans > 60 (> 60); eGFR For Non-African Americans > 60 (> 60)
[2020-06-15] MEDS: Artificial Tears SOLN 15 ML BOTTLE BOTH EYES SCH ×5 (03:33→20:51)
[2020-06-15] MEDS: Ipratropium/Albuterol Neb 3 ML IH SCH ×4 (04:27→22:04)
[2020-06-15] MEDS: Calcium Chloride 4,000 MG in 0.9 % Sodium Chloride 1,000 ML CRRT SCH ×2 (05:10→18:34)
[2020-06-15 05:14] LABS: VBG Ionized Calcium 1.07 mmol/L (1.15-1.35)
[2020-06-15] MEDS: *HR* Heparin 5,000 UNIT/ML VIAL SQ SCH ×3 (05:32→20:51)
[2020-06-15] MEDS: Insulin LISPRO 300 UNITS/3 ML VIAL SQ SCH ×3 (06:11→18:55)
[2020-06-15 08:14] LABS: VBG Ionized Calcium 1.08 mmol/L (1.15-1.35)
[2020-06-15] MEDS: Midazolam HCl 50 MG/100 ML IV.SOLN IVC SCH (08:30)
[2020-06-15] MEDS ORDERED: Potassium Phosphate 44 MEQ in 0.9 % Sodium Chloride 250 ML IVPB ONE (08:44)
[2020-06-15] MEDS: Budesonide Neb 0.5 MG/2 ML IH SCH ×2 (08:49→22:04)
[2020-06-15] MEDS: Albuterol 2.5 MG/3 ML NEBULIZER AER SCH ×2 (08:50→22:04)
[2020-06-15] MEDS: Renal Vitamin 1 CAP CAPSULE PO SCH (08:57)
[2020-06-15] MEDS: Piperacillin/Tazobactam 3.375 GM in 0.9 % Sodium Chloride Mini Bag 100 ML IVPB SCH ×2 (09:00→15:37)
[2020-06-15] MEDS: Chlorhexidine Rinse 15 ML MOUTHWASH MM SCH ×2 (09:00→20:50)
[2020-06-15] MEDS: Amiodarone Premix 360 MG/200 ML BAG IVC SCH ×2 (09:03→23:55)
[2020-06-15] MEDS: Norepinephrine 8 MG in 0.9 % Sodium Chloride 250 ML IVC SCH (09:09)
[2020-06-15] MEDS: Famotidine 400 MG/50 ML ORAL SUSPENSION GTUBE SCH (09:19)
[2020-06-15 09:39] LABS: ABG Base Excess 2 mEq/L (-2 to 3); ABG HCO3 28 mEq/L (21-27); ABG Oxygen Saturation 91 % (95-98); ABG PCO2 49 mmHg (35-45); ABG PH 7.36 pH Units (7.32-7.45); ABG PO2 63 mmHg (85-104); ABG TCO2 29 mEq/L (20-26); Blood Gas Modality ASSIST CONTROL; Blood Gas VT 450 cc
[2020-06-15] MEDS: Vasopressin 40 UNIT in D5% in Water 100 ML IVC SCH (10:00)
[2020-06-15] MEDS: Albumin 25% 25gram/100mL 25 GM/100 ML IV.SOLN IVC SCH ×2 (11:22→12:01)
[2020-06-15] MEDS: FentaNYL (PF) 2,500 MCG/50 ML IV.SOLN IVC SCH (11:23)
[2020-06-15 12:32] LABS: VBG Ionized Calcium 1.07 mmol/L (1.15-1.35)
[2020-06-15] MEDS: Calcium Gluconate 1gm/50mL 1 GM/50 ML BAG IVPB PRN ×2 (13:13→15:36)
[2020-06-15] MEDS ORDERED: 0.9 % Sodium Chloride 250 ML ONE (16:37)
[2020-06-15] MEDS ORDERED: *HR* Heparin 5,000 UNIT/ML VIAL ONE (16:43)
[2020-06-15 17:19] LABS: VBG Ionized Calcium 1.15 mmol/L (1.15-1.35)
[2020-06-15 18:58] LABS: VBG Ionized Calcium 1.14 mmol/L (1.15-1.35)
[2020-06-16] MEDS: FentaNYL (PF) 2,500 MCG/50 ML IV.SOLN IVC SCH ×3 (00:01→23:47)
[2020-06-16] MEDS: Artificial Tears SOLN 15 ML BOTTLE BOTH EYES SCH ×7 (00:02→23:48)
[2020-06-16] MEDS: Insulin LISPRO 300 UNITS/3 ML VIAL SQ SCH ×5 (00:03→23:51)
[2020-06-16] MEDS: Piperacillin/Tazobactam 3.375 GM in 0.9 % Sodium Chloride Mini Bag 100 ML IVPB SCH ×4 (00:05→23:46)
[2020-06-16 01:48] LABS: VBG Ionized Calcium 1.14 mmol/L (1.15-1.35)
[2020-06-16] MEDS: Vasopressin 40 UNIT in D5% in Water 100 ML IVC SCH ×2 (03:01→18:30)
[2020-06-16] MEDS: PrismaSATE BGK 4/2.5 5,000 ML CRRT SCH ×8 (03:04→13:45)
[2020-06-16] MEDS: Ipratropium/Albuterol Neb 3 ML IH SCH ×4 (03:59→21:17)
[2020-06-16 04:17] LABS: Basophils % 0.3 %; Eosinophils % 0.1 %; Immature Granulocytes % 1.6 % (0-4); Mean Platelet Volume 10.7 fL (9.4-12.4); Nucleated Red Blood Cells 0.4 /100 WBC (0)
[2020-06-16 04:18] LABS: Basophils # 0.1 K/mcL (0.0-0.2); Hematocrit 30.5 % (37.5-50.1); Hemoglobin 8.9 g/dL (12.9-16.9); Lymphocytes % 3.7 %; Mean Corpuscular HGB Conc 29.2 g/dL (31.6-35.5); Mean Corpuscular Hemoglobin 29.7 pg (28.0-33.3); Mean Corpuscular Volume 101.7 fL (83.0-100.0); Monocytes # 1.4 K/mcL (0.0-1.3); Monocytes % 5.1 %; Neutrophils # 25.1 K/mcL (1.6-8.9); Platelet Count 128 K/mcL (140-400); Red Cell Distribution Width 18.7 % (11.5-14.5); Segmented Neutrophils % 89.2 %; White Blood Count 28.1 K/mcL (4.3-11.1)
[2020-06-16 04:32] LABS: BUN/Creatinine Ratio 14 (6-26); Blood Urea Nitrogen 10 mg/dL (8-23); Calcium 9.8 mg/dL (8.6-10.3); Carbon Dioxide 26 mEq/L (23-29); Chloride 101 mEq/L (98-107); Glucose 155 mg/dL (70-105); Magnesium 1.8 mg/dL (1.6-2.6); Osmolality,Calculated 286 (280-300); Phosphorous 2.4 mg/dL (2.7-4.5); Potassium 4.4 mEq/L (3.5-5.1); Sodium 137 mEq/L (136-145); eGFR For African Americans > 60 (> 60); eGFR For Non-African Americans > 60 (> 60)
[2020-06-16] MEDS: *HR* Heparin 5,000 UNIT/ML VIAL SQ SCH ×3 (05:11→21:42)
[2020-06-16 05:36] LABS: Hypochromasia Present (Not Present); Platelet Estimate Slight Decrease (Normal); Polychromasia 1+ (Not Present)
[2020-06-16] MEDS: Calcium Chloride 4,000 MG in 0.9 % Sodium Chloride 1,000 ML CRRT SCH ×2 (06:56→18:04)
[2020-06-16 07:09] LABS: VBG Ionized Calcium 1.17 mmol/L (1.15-1.35)
[2020-06-16] MEDS: Midazolam HCl 50 MG/100 ML IV.SOLN IVC SCH ×2 (08:32→17:08)
[2020-06-16] MEDS: Chlorhexidine Rinse 15 ML MOUTHWASH MM SCH ×2 (08:44→19:47)
[2020-06-16] MEDS: Renal Vitamin 1 CAP CAPSULE PO SCH (08:51)
[2020-06-16] MEDS: Budesonide Neb 0.5 MG/2 ML IH SCH ×2 (09:07→21:17)
[2020-06-16] MEDS: Albuterol 2.5 MG/3 ML NEBULIZER AER SCH ×2 (09:08→21:17)
[2020-06-16] MEDS: Phenylephrine 100 MG in 0.9 % Sodium Chloride 500 ML IVC SCH (10:00)
[2020-06-16] MEDS: Famotidine 400 MG/50 ML ORAL SUSPENSION GTUBE SCH (10:26)
[2020-06-16] MEDS: Vancomycin Oral Soln 125 MG/2.5 ML UDC PO SCH ×4 (10:26→21:04)
[2020-06-16 11:02] LABS: Magnesium 2.1 mg/dL (1.6-2.6); Phosphorous 2.3 mg/dL (2.7-4.5)
[2020-06-16] MEDS: Amiodarone Premix 360 MG/200 ML BAG IVC SCH (12:30)
[2020-06-16 13:23] LABS: VBG Ionized Calcium 1.21 mmol/L (1.15-1.35)
[2020-06-16] MEDS: MetroNIDAZOLE 500 MG/100 ML 500 MG/100 ML BAG IVPB SCH ×2 (15:35→23:47)
[2020-06-16] MEDS: Norepinephrine 8 MG in 0.9 % Sodium Chloride 250 ML IVC SCH (15:55)
[2020-06-17 01:06] LABS: VBG Ionized Calcium 1.25 mmol/L (1.15-1.35)
[2020-06-17] MEDS: PrismaSATE BGK 4/2.5 5,000 ML CRRT SCH ×8 (01:39→21:23)
[2020-06-17] MEDS: Amiodarone Premix 360 MG/200 ML BAG IVC SCH ×2 (02:21→12:02)
[2020-06-17] MEDS: Ipratropium/Albuterol Neb 3 ML IH SCH ×4 (03:02→21:05)
[2020-06-17] MEDS: Phenylephrine 100 MG in 0.9 % Sodium Chloride 500 ML IVC SCH ×2 (03:03→15:04)
[2020-06-17] MEDS: Artificial Tears SOLN 15 ML BOTTLE BOTH EYES SCH ×5 (03:50→20:09)
[2020-06-17 03:59] LABS: ABG Base Excess 4 mEq/L (-2 to 3); ABG HCO3 29 mEq/L (21-27); ABG Oxygen Saturation 93 % (95-98); ABG PCO2 42 mmHg (35-45); ABG PH 7.44 pH Units (7.32-7.45); ABG PO2 64 mmHg (85-104); ABG TCO2 30 mEq/L (20-26)
[2020-06-17 04:47] LABS: Eosinophils % 0.5 %; Hemoglobin 8.8 g/dL (12.9-16.9); Mean Platelet Volume 11.1 fL (9.4-12.4); Platelet Count 143 K/mcL (140-400)
[2020-06-17 04:48] LABS: Basophils # 0.1 K/mcL (0.0-0.2); Basophils % 0.3 %; Eosinophils # 0.1 K/mcL (0.0-0.6); Hematocrit 29.5 % (37.5-50.1); Immature Granulocytes % 1.1 % (0-4); Lymphocytes # 1.1 K/mcL (0.6-4.6); Mean Corpuscular HGB Conc 29.8 g/dL (31.6-35.5); Mean Corpuscular Hemoglobin 29.8 pg (28.0-33.3); Monocytes # 1.2 K/mcL (0.0-1.3); Monocytes % 6.4 %; Neutrophils # 15.7 K/mcL (1.6-8.9); Nucleated Red Blood Cells 0.8 /100 WBC (0); Red Blood Count 2.95 M/mcL (4.19-5.50); Red Cell Distribution Width 18.7 % (11.5-14.5); Segmented Neutrophils % 85.7 %; White Blood Count 18.3 K/mcL (4.3-11.1)
[2020-06-17] MEDS: *HR* Heparin 5,000 UNIT/ML VIAL SQ SCH ×3 (04:52→21:08)
[2020-06-17] MEDS: Insulin LISPRO 300 UNITS/3 ML VIAL SQ SCH ×3 (04:53→17:46)
[2020-06-17 04:58] LABS: Alanine Aminotransferase 12 Units/L (7-52); Albumin 2.9 g/dL (3.5-5.7); Albumin/Globulin Ratio 0.8 (1.1-2.2); Alkaline Phosphatase 111 Units/L (34-104); Aspartate Amino Transferase 14 Units/L (13-39); BUN/Creatinine Ratio 12 (6-26); Bilirubin,Total 0.7 mg/dL (0.3-1.0); Blood Urea Nitrogen 9 mg/dL (8-23); Calcium 10.8 mg/dL (8.6-10.3); Carbon Dioxide 29 mEq/L (23-29); Chloride 101 mEq/L (98-107); Globulin 3.8 g/dL (2.4-3.5); Glucose 119 mg/dL (70-105); Osmolality,Calculated 292 (280-300); Phosphorous 3.4 mg/dL (2.7-4.5); Potassium 3.5 mEq/L (3.5-5.1); Sodium 141 mEq/L (136-145); Total Protein 6.7 g/dL (6.4-8.9); eGFR For African Americans > 60 (> 60); eGFR For Non-African Americans > 60 (> 60)
[2020-06-17 05:10] LABS: Anisocytosis 1+ (Not Present); Macrocytosis Present (Not Present); Microcytosis Present (Not Present); Platelet Estimate Normal (Normal)
[2020-06-17] MEDS: Calcium Chloride 4,000 MG in 0.9 % Sodium Chloride 1,000 ML CRRT SCH ×2 (05:36→17:46)
[2020-06-17 06:55] LABS: VBG Ionized Calcium 1.25 mmol/L (1.15-1.35)
[2020-06-17] MEDS: Famotidine 400 MG/50 ML ORAL SUSPENSION GTUBE SCH (07:09)
[2020-06-17] MEDS: Chlorhexidine Rinse 15 ML MOUTHWASH MM SCH ×2 (07:10→20:09)
[2020-06-17] MEDS: Vancomycin Oral Soln 125 MG/2.5 ML UDC PO SCH ×4 (07:10→20:09)
[2020-06-17] MEDS: MetroNIDAZOLE 500 MG/100 ML 500 MG/100 ML BAG IVPB SCH ×2 (07:11→15:21)
[2020-06-17] MEDS: Piperacillin/Tazobactam 3.375 GM in 0.9 % Sodium Chloride Mini Bag 100 ML IVPB SCH ×2 (07:11→15:21)
[2020-06-17] MEDS: Renal Vitamin 1 CAP CAPSULE PO SCH (07:12)
[2020-06-17] MEDS: Albuterol 2.5 MG/3 ML NEBULIZER AER SCH ×2 (09:36→21:05)
[2020-06-17] MEDS: Budesonide Neb 0.5 MG/2 ML IH SCH ×2 (09:36→21:05)
[2020-06-17] MEDS: FentaNYL (PF) 2,500 MCG/50 ML IV.SOLN IVC SCH (12:01)
[2020-06-17] MEDS: Norepinephrine 8 MG in 0.9 % Sodium Chloride 250 ML IVC SCH (13:02)
[2020-06-17] MEDS: Vasopressin 40 UNIT in D5% in Water 100 ML IVC SCH (13:03)
[2020-06-17] MEDS: Midazolam HCl 50 MG/100 ML IV.SOLN IVC SCH (16:02)
[2020-06-17 19:16] LABS: VBG Ionized Calcium 1.58 mmol/L (1.15-1.35)
[2020-06-17 21:11] LABS: VBG Ionized Calcium 1.29 mmol/L (1.15-1.35)
[2020-06-17] MEDS ORDERED: *HR* Heparin 5,000 UNIT/ML VIAL ONE (22:13)
[2020-06-18] MEDS: Artificial Tears SOLN 15 ML BOTTLE BOTH EYES SCH ×7 (00:09→23:16)
[2020-06-18] MEDS: MetroNIDAZOLE 500 MG/100 ML 500 MG/100 ML BAG IVPB SCH ×4 (00:09→23:16)
[2020-06-18] MEDS: Piperacillin/Tazobactam 3.375 GM in 0.9 % Sodium Chloride Mini Bag 100 ML IVPB SCH ×4 (00:10→23:15)
[2020-06-18] MEDS: Insulin LISPRO 300 UNITS/3 ML VIAL SQ SCH ×5 (00:10→23:16)
[2020-06-18 00:20] LABS: VBG Ionized Calcium 1.29 mmol/L (1.15-1.35)
[2020-06-18] MEDS: Phenylephrine 100 MG in 0.9 % Sodium Chloride 500 ML IVC SCH ×3 (02:15→22:19)
[2020-06-18] MEDS: Amiodarone Premix 360 MG/200 ML BAG IVC SCH ×2 (02:36→15:00)
[2020-06-18] MEDS: Ipratropium/Albuterol Neb 3 ML IH SCH ×4 (03:01→22:43)
[2020-06-18 04:37] LABS: Eosinophils % 0.7 %; White Blood Count 25.9 K/mcL (4.3-11.1)
[2020-06-18 04:39] LABS: Basophils # 0.1 K/mcL (0.0-0.2); Basophils % 0.2 %; Eosinophils # 0.2 K/mcL (0.0-0.6); Hematocrit 30.5 % (37.5-50.1); Hemoglobin 8.7 g/dL (12.9-16.9); Immature Granulocytes % 1.4 % (0-4); Immature Platelets 12.5 % (1.1-6.1); Lymphocytes # 1.2 K/mcL (0.6-4.6); Lymphocytes % 4.5 %; Mean Corpuscular HGB Conc 28.5 g/dL (31.6-35.5); Mean Corpuscular Hemoglobin 29.2 pg (28.0-33.3); Mean Corpuscular Volume 102.3 fL (83.0-100.0); Mean Platelet Volume 11.6 fL (9.4-12.4); Monocytes # 1.4 K/mcL (0.0-1.3); Monocytes % 5.3 %; Neutrophils # 22.8 K/mcL (1.6-8.9); Nucleated Red Blood Cells 0.5 /100 WBC (0); Platelet Count 137 K/mcL (140-400); Red Blood Count 2.98 M/mcL (4.19-5.50); Red Cell Distribution Width 18.8 % (11.5-14.5); Segmented Neutrophils % 87.9 %
[2020-06-18 04:39] LABS: VBG Ionized Calcium 1.26 mmol/L (1.15-1.35)
[2020-06-18] MEDS: PrismaSATE BGK 4/2.5 5,000 ML CRRT SCH ×6 (04:54→17:57)
[2020-06-18 04:56] LABS: Alanine Aminotransferase 12 Units/L (7-52); Albumin 2.7 g/dL (3.5-5.7); Albumin/Globulin Ratio 0.7 (1.1-2.2); Alkaline Phosphatase 114 Units/L (34-104); Aspartate Amino Transferase 14 Units/L (13-39); BUN/Creatinine Ratio 10 (6-26); Bilirubin,Total 0.7 mg/dL (0.3-1.0); Blood Urea Nitrogen 8 mg/dL (8-23); Calcium 10.3 mg/dL (8.6-10.3); Carbon Dioxide 28 mEq/L (23-29); Chloride 102 mEq/L (98-107); Globulin 3.7 g/dL (2.4-3.5); Glucose 135 mg/dL (70-105); Osmolality,Calculated 290 (280-300); Potassium 3.5 mEq/L (3.5-5.1); Sodium 140 mEq/L (136-145); Total Protein 6.4 g/dL (6.4-8.9); eGFR For African Americans > 60 (> 60); eGFR For Non-African Americans > 60 (> 60)
[2020-06-18 04:59] LABS: ABG Base Excess 3 mEq/L (-2 to 3); ABG HCO3 30 mEq/L (21-27); ABG Oxygen Saturation 97 % (95-98); ABG PCO2 59 mmHg (35-45); ABG PH 7.32 pH Units (7.32-7.45); ABG PO2 99 mmHg (85-104); ABG TCO2 32 mEq/L (20-26); Blood Gas VT 450 cc
[2020-06-18 05:14] LABS: Anisocytosis 1+ (Not Present); Hypochromasia Present (Not Present)
[2020-06-18 05:15] LABS: Platelet Estimate Normal (Normal)
[2020-06-18 05:39] LABS: Magnesium 1.8 mg/dL (1.6-2.6); Phosphorous 3.4 mg/dL (2.7-4.5)
[2020-06-18] MEDS: *HR* Heparin 5,000 UNIT/ML VIAL SQ SCH ×3 (06:12→20:39)
[2020-06-18] MEDS: Calcium Chloride 4,000 MG in 0.9 % Sodium Chloride 1,000 ML CRRT SCH ×2 (07:06→21:34)
[2020-06-18] MEDS: Chlorhexidine Rinse 15 ML MOUTHWASH MM SCH ×2 (08:16→20:16)
[2020-06-18] MEDS: Renal Vitamin 1 CAP CAPSULE PO SCH (08:18)
[2020-06-18] MEDS: Vancomycin Oral Soln 125 MG/2.5 ML UDC PO SCH ×4 (08:18→20:39)
[2020-06-18] MEDS: Famotidine 400 MG/50 ML ORAL SUSPENSION GTUBE SCH (09:39)
[2020-06-18 10:29] LABS: VBG Ionized Calcium 1.24 mmol/L (1.15-1.35)
[2020-06-18] MEDS: Albuterol 2.5 MG/3 ML NEBULIZER AER SCH ×2 (10:55→22:44)
[2020-06-18] MEDS: Budesonide Neb 0.5 MG/2 ML IH SCH ×2 (10:55→22:42)
[2020-06-18] MEDS: Lacri-Lube 3.5 GM TUBE BOTH EYES SCH ×2 (12:30→20:16)
[2020-06-18] MEDS: FentaNYL (PF) 2,500 MCG/50 ML IV.SOLN IVC SCH ×2 (12:30)
[2020-06-18] MEDS: Norepinephrine 8 MG in 0.9 % Sodium Chloride 250 ML IVC SCH ×2 (12:50→20:36)
[2020-06-18] MEDS: Midazolam HCl 50 MG/100 ML IV.SOLN IVC SCH (17:13)
[2020-06-18] MEDS ORDERED: Vasopressin 40 UNIT in D5% in Water 100 ML IVC SCH (19:45)
[2020-06-18 20:14] LABS: VBG Ionized Calcium 1.19 mmol/L (1.15-1.35)
[2020-06-18 22:37] LABS: VBG Ionized Calcium 1.18 mmol/L (1.15-1.35)
[2020-06-19] MEDS: PrismaSATE BGK 4/2.5 5,000 ML CRRT SCH ×2 (00:34)
[2020-06-19] MEDS: FentaNYL (PF) 2,500 MCG/50 ML IV.SOLN IVC SCH (01:05)
[2020-06-19] MEDS: Norepinephrine 8 MG in 0.9 % Sodium Chloride 250 ML IVC SCH ×2 (01:45→07:00)
[2020-06-19] MEDS: Artificial Tears SOLN 15 ML BOTTLE BOTH EYES SCH ×2 (03:17→07:59)
[2020-06-19] MEDS: Ipratropium/Albuterol Neb 3 ML IH SCH ×2 (03:59→09:21)
[2020-06-19 04:18] LABS: VBG Ionized Calcium 1.15 mmol/L (1.15-1.35)
[2020-06-19] MEDS ORDERED: Hydrocortisone Sodium Succ 100 MG/2 ML VIAL ONE (04:27)
[2020-06-19 04:28] LABS: ABG Base Excess -13 mEq/L (-2 to 3); ABG HCO3 17 mEq/L (21-27); ABG Oxygen Saturation 85 % (95-98); ABG PCO2 55 mmHg (35-45); ABG PH 7.09 pH Units (7.32-7.45); ABG PO2 70 mmHg (85-104); ABG TCO2 18 mEq/L (20-26); Blood Gas Modality ASSIST CONTROL; Blood Gas VT 450 cc
[2020-06-19] MEDS ORDERED: Sodium Bicarbonate 50 MEQ/50 ML VIAL ONE (04:28)
[2020-06-19] MEDS ORDERED: Hydrocortisone Sodium Succ 100 MG/2 ML VIAL IVP ONE (04:29)
[2020-06-19] MEDS ORDERED: Sodium Bicarbonate 50 MEQ/50 ML VIAL IVP ONE (04:29)
[2020-06-19 04:38] LABS: Alanine Aminotransferase 61 Units/L (7-52); Albumin 2.6 g/dL (3.5-5.7); Albumin/Globulin Ratio 0.7 (1.1-2.2); Alkaline Phosphatase 136 Units/L (34-104); Aspartate Amino Transferase 231 Units/L (13-39); BUN/Creatinine Ratio 10 (6-26); Bilirubin,Total 0.9 mg/dL (0.3-1.0); Blood Urea Nitrogen 7 mg/dL (8-23); Calcium 10.3 mg/dL (8.6-10.3); Carbon Dioxide 16 mEq/L (23-29); Chloride 102 mEq/L (98-107); Globulin 3.9 g/dL (2.4-3.5); Glucose 99 mg/dL (70-105); Osmolality,Calculated 286 (280-300); Sodium 139 mEq/L (136-145); Total Protein 6.5 g/dL (6.4-8.9); eGFR For African Americans > 60 (> 60); eGFR For Non-African Americans > 60 (> 60)
[2020-06-19 05:03] LABS: Hematocrit 30.2 % (37.5-50.1); Hemoglobin 8.1 g/dL (12.9-16.9); Immature Platelets 18.4 % (1.1-6.1); Mean Corpuscular HGB Conc 26.8 g/dL (31.6-35.5); Mean Corpuscular Hemoglobin 29.3 pg (28.0-33.3); Mean Corpuscular Volume 109.4 fL (83.0-100.0); Mean Platelet Volume 12.2 fL (9.4-12.4); Nucleated Red Blood Cells 2.4 /100 WBC (0); Platelet Count 105 K/mcL (140-400); Red Blood Count 2.76 M/mcL (4.19-5.50)
[2020-06-19 05:05] LABS: White Blood Count 33.2 K/mcL (4.3-11.1)
[2020-06-19] MEDS: Insulin LISPRO 300 UNITS/3 ML VIAL SQ SCH (05:10)
[2020-06-19] MEDS: *HR* Heparin 5,000 UNIT/ML VIAL SQ SCH (05:23)
[2020-06-19 05:27] LABS: Monocytes # 2.7 K/mcL (0.0-1.3); Neutrophils # 30.5 K/mcL (1.6-8.9)
[2020-06-19 05:28] LABS: Anisocytosis 1+ (Not Present); Hypochromasia Present (Not Present); Macrocytosis Present (Not Present); Platelet Estimate Slight Decrease (Normal); Toxic Granulation Present (Not Present); Toxic Vacuolation Present (Not Present)
[2020-06-19] MEDS: Amiodarone Premix 360 MG/200 ML BAG IVC SCH (06:12)
[2020-06-19] MEDS: MetroNIDAZOLE 500 MG/100 ML 500 MG/100 ML BAG IVPB SCH (07:57)
[2020-06-19] MEDS: Piperacillin/Tazobactam 3.375 GM in 0.9 % Sodium Chloride Mini Bag 100 ML IVPB SCH (07:57)
[2020-06-19] MEDS: Chlorhexidine Rinse 15 ML MOUTHWASH MM SCH (07:57)
[2020-06-19] MEDS: Famotidine 400 MG/50 ML ORAL SUSPENSION GTUBE SCH (07:58)
[2020-06-19] MEDS: Vancomycin Oral Soln 125 MG/2.5 ML UDC PO SCH (07:58)
[2020-06-19] MEDS: Phenylephrine 100 MG in 0.9 % Sodium Chloride 500 ML IVC SCH (07:58)
[2020-06-19] MEDS: Renal Vitamin 1 CAP CAPSULE PO SCH (07:59)
[2020-06-19] MEDS: Lacri-Lube 3.5 GM TUBE BOTH EYES SCH (07:59)
[2020-06-19] MEDS ORDERED: Norepinephrine 16 MG in 0.9 % Sodium Chloride 500 ML IVC SCH (08:11)
[2020-06-19] MEDS: Budesonide Neb 0.5 MG/2 ML IH SCH (09:21)
[2020-06-19] MEDS: Albuterol 2.5 MG/3 ML NEBULIZER AER SCH (09:29)
[2020-06-19 11:10] VITALS: BP 58/38
== END 2020-06-19 12:05 | disposition expired | DRG 207 ==
LOC: CDU → SUATTDRO 19:53 → 2ANU 22:59 → ICNU 06-08 05:25
PROVIDERS: ADMIT Internal Medicine; ATTEND Internal Medicine